=== PATIENT | female | born 1950 | race Caucasian/White ===

== ENCOUNTER 2016-07-15 15:02 | Day surgery (SDC) | payer OTHER ==
[2016-07-14 11:01] VITALS: Ht 157.5 cm; Wt 86.0 kg
[2016-07-15] VITALS (18 sets, daily range): BP systolic 133–158; BP diastolic 83–92; PULSE 64–72; RESP 12–22
[~2016-07-15] VITALS: Ht 157.5 cm; Wt 86.0 kg
[~2016-07-15 15:02] MED LIST: ETOMIDATE 20 MG INJ ONE; LACTATED RINGER'S 1,000 ML IV* SCH; METO25TA7 PO; OMEP20CA16 PO; POTA-57 PO
--- NOTE | 2016-07-15 15:26 | HPN ---
Date/Time of Note Date/Time of Note DATE: 07/15/16 TIME: 15:26 Interval H&P Admission Note Pt. seen H&P reviewed: No system changes FATMATA RICH July 15, 2016 15:26
[2016-07-15] MEDS ORDERED: LIDOCAINE 1% (STERILE-PAK) 30 ML INJ ONE (15:55)
[2016-07-15] MEDS ORDERED: BUPIVACAINE 0.5% (SDV) 30 ML INJ ONE (15:56)
[2016-07-15] MEDS ORDERED: POLYMYXIN/BACITRACIN 1L IRRIG ONE (15:56)
[2016-07-15] MEDS ORDERED: LIDOCAINE 1% (MDV) 20 ML INJ ONE (17:03)
[2016-07-15] MEDS ORDERED: MIDAZOLAM 1 MG/ML 2 ML INJ ONE (17:03)
[2016-07-15] MEDS ORDERED: FENTAnyl 50 MCG/ML VIAL ONE (17:03)
[2016-07-15] MEDS ORDERED: PROPOFOL 20 ML ONE (17:03)
[2016-07-15] MEDS ORDERED: ONDANSETRON 4 MG INJ ONE (17:13)
[2016-07-15] MEDS ORDERED: DEXAMETHASONE 4 MG/ML 1 ML INJ ONE (17:14)
[2016-07-15] MEDS ORDERED: FAMOTIDINE 20 MG INJ ONE (17:14)
[2016-07-15] MEDS ORDERED: CEFAZOLIN 1 GM INJ ONE (17:15)
[2016-07-15] MEDS ORDERED: HYD25 PO (17:27)
[2016-07-15] MEDS ORDERED: ESCI20TA38 PO (17:27)
[2016-07-15] MEDS ORDERED: KETOROLAC 30 MG INJ ONE (17:53)
--- NOTE | 2016-07-15 18:30 | OPR ---
DATE OF OPERATION: 07/15/2016 PREOPERATIVE DIAGNOSES: 1. 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 2. Right thumb interphalangeal joint mucous cyst. POSTOPERATIVE DIAGNOSES: 1. 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 2. Right thumb interphalangeal joint mucous cyst. PROCEDURE: 1. Excision of right thumb interphalangeal joint mucous cyst. 2. Right thumb interphalangeal joint arthrotomy with excision of osteophytes. SURGEON: Sam Noyola MD ANESTHESIA: General plus local. OPERATIVE FINDINGS: Right thumb interphalangeal joint osteoarthritis with osteophyte formation and mucous cyst formation. INDICATION FOR PROCEDURE: A 66-year-old female with longstanding right thumb cyst and pain. She failed conservative management and elected to proceed with surgical intervention, understanding the risks and benefits. DESCRIPTION OF PROCEDURE: The patient was seen in the preoperative area and all further questions were answered. Again, she gave informed consent understanding the risks and benefits. She was taken to the operative suite and placed in supine position. She was placed under general anesthesia, and tourniquet placed on the right upper extremity. Ancef 2 grams was given and the right upper extremity was prepped with ChloraPrep stick and draped in the usual sterile fashion. Esmarch bandage was used to exsanguinate the extremity and tourniquet inflated to 250 mmHg. An H-type incision at the dorsal aspect of the thumb interphalangeal joint was utilized with sharp dissection carried down through skin and subcutaneous tissue. Full-thickness skin flaps were raised proximally and distally and the terminal extensor tendon was identified. A radial and ulnar joint arthrotomy was made and large osteophytes were identified at the dorsal IP joint on both the proximal and distal phalanx. The osteophytes were excised with a rongeur on both the radial and ulnar aspects of the joint. I palpated the dorsal joint after debridement and excision of osteophytes, and the joint was smooth. A mucous cyst had formed distally just proximal to the nail plate, and a small incision was made there and the cyst was excised using a knife, tenotomy dissecting scissors and Adson forceps. The wounds were copiously irrigated and skin was closed with 5-0 nylon. Xeroform was placed over the wound followed by sterile gauze, Webril, and a finger splint on the volar aspect of the thumb, with the thumb in hyperextension at the IP joint. Tourniquet deflated after 24 minutes and patient was awakened from anesthesia. She was taken to the postoperative suite in stable condition and tolerated the procedure well without complication. SPECIMENS: None. ESTIMATED BLOOD LOSS: 5 mL. COUNTS: Sponge, instrument, needle counts correct. TOURNIQUET TIME: 24 minutes. CONDITION ON DISCHARGE: Stable. Dictated By: SAM HOGUE/JEFF Conf#: [id number] DID#: [id number] MTDD
[2016-07-15] MEDS ORDERED: HYDROCODONE/APAP (5/325) TAB PO ONE (19:30)
== END 2016-07-15 19:50 | disposition home or self-care (01) ==
LOC: SDS 15:02
PROVIDERS: ATTEND Orthopaedic Surgery Hand Surgery
DX: M19.041 Primary osteoarthritis, right hand (principal); I10 Essential (primary) hypertension
CPT/HCPCS: 26080; J0690; J1100; J2405; Z7512; Z7610; J1885; J2250; J3010

== ENCOUNTER → 2016-09-06 | Outpatient (CLI) | payer OTHER ==
[~2016-09-06] MED LIST changes: +ESCI20TA38 PO; -ETOMIDATE 20 MG INJ ONE; +HYD25 PO; -LACTATED RINGER'S 1,000 ML IV* SCH; +OPHTHALMIC IRRIG SOLUTION 120 ML ONE; +PHENYLephrine 10% 5 ML OPH ONE; -POTA-57 PO; +PROPARACAINE 0.5% 15 ML OPH ONE; +TROPICAMIDE 1% 3 ML OPH ONE
== END | disposition home or self-care (01) ==
LOC: RAD 12:43
PROVIDERS: ATTEND Ophthalmology
DX: H26.491 Other secondary cataract, right eye (principal)
CPT/HCPCS: 66821; Z7610

== ENCOUNTER 2016-12-06 05:19 | Day surgery (SDC) | payer OTHER ==
[2016-12-03 11:11] VITALS: BMI 37.9
[2016-12-06] VITALS (13 sets, daily range): BP systolic 93–145; BP diastolic 61–82; PULSE 32–68; RESP 18–21; Ht 154.9 cm; Wt 92.6 kg
[~2016-12-06] VITALS: Ht 154.9 cm; Wt 92.6 kg
[~2016-12-06 05:19] MED LIST changes: -HYD25 PO; +HYDR25TA6 PO; +METO-335 PO; -METO25TA7 PO; -OPHTHALMIC IRRIG SOLUTION 120 ML ONE; -PHENYLephrine 10% 5 ML OPH ONE; -PROPARACAINE 0.5% 15 ML OPH ONE; -TROPICAMIDE 1% 3 ML OPH ONE
[2016-12-06] MEDS ORDERED: HYDROmorphONE (0.2 MG/ML) 10ML SYG IV PRN ×3 (06:30)
[2016-12-06] MEDS ORDERED: MEPERIDINE 25 MG INJ IV PRN (06:30)
[2016-12-06] MEDS ORDERED: EPHEDrine SULFATE 50 MG/5 ML SYG IV PRN (06:30)
[2016-12-06] MEDS ORDERED: LABETALOL HCL 20MG INJ IV PRN (06:30)
[2016-12-06] MEDS ORDERED: ONDANSETRON 4 MG INJ IV PRN (06:30)
[2016-12-06] MEDS ORDERED: CYCLOPENTOLATE 2% 2 ML OPH OPER SCH (06:30)
[2016-12-06] MEDS ORDERED: ATROPINE 1 MG/10 ML SYRINGE IV PRN (06:30)
[2016-12-06] MEDS ORDERED: MOXIFLOXACIN 0.5% 3 ML OPH OPER SCH (06:30)
[2016-12-06] MEDS ORDERED: DIPHENHYDRAMINE 50 MG INJ IV PRN (06:30)
[2016-12-06] MEDS ORDERED: hydrALAzine 20 MG INJ IV PRN (06:30)
[2016-12-06] MEDS ORDERED: OXYCODONE/ACETAMINOPHEN (5/325) TAB PO PRN ×2 (06:30)
[2016-12-06] MEDS ORDERED: morphine (1 MG/ML) 10ML SYRINGE IV PRN ×3 (06:30)
[2016-12-06] MEDS ORDERED: MIDAZOLAM 1 MG/ML 2 ML INJ IV PRN (06:30)
[2016-12-06] MEDS ORDERED: FENTAnyl 50 MCG/ML VIAL IV PRN ×2 (06:30)
[2016-12-06] MEDS ORDERED: NEPAFENAC 0.1% 3 ML OPH OPER SCH (06:30)
[2016-12-06] MEDS ORDERED: PHENYLephrine 10% 5 ML OPH OPER SCH (06:30)
[2016-12-06] MEDS ORDERED: LIDOCAINE 1% (MPF) 10 ML INJ ONE (06:43)
[2016-12-06] MEDS ORDERED: TETRACAINE 0.5% 4 ML OPH ONE (06:43)
[2016-12-06] MEDS ORDERED: EPINEPHrine 1 MG INJ ONE (06:43)
[2016-12-06] MEDS ORDERED: BUPIVACAINE 0.75% (MPF) 10 ML INJ ONE (06:43)
[2016-12-06] MEDS ORDERED: TIMOLOL 0.5% 5 ML OPH ONE (06:43)
[2016-12-06] MEDS ORDERED: SODIUM BICARBONATE (IV ADD) 50 ML ONE (06:44)
[2016-12-06] MEDS ORDERED: LIDOCAINE 100 MG SYRINGE ONE (06:45)
[2016-12-06] MEDS ORDERED: LIDOCAINE 2% (SDV) 5 ML INJ ONE (06:45)
[2016-12-06] MEDS ORDERED: PROPOFOL 20 ML ONE (06:45)
[2016-12-06] MEDS ORDERED: TETRACAINE 0.5% 4 ML OPH OPER ONE (07:11)
[2016-12-06] MEDS ORDERED: PHENYLephrine 10% 5 ML OPH OPER ONE (07:11)
[2016-12-06] MEDS ORDERED: LIDOCAINE 1% (MPF) 5 ML VIAL INJ ONE (07:11)
[2016-12-06] MEDS ORDERED: CARBACHOL 0.01% 1.5 ML OPH INJ IO ONE (08:12)
[2016-12-06] MEDS ORDERED: TIMOLOL 0.5% 5 ML OPH LEFT EYE ONE (08:13)
--- NOTE | 2016-12-06 08:27 | HPN ---
Date/Time of Note Date/Time of Note DATE: 12/06/16 TIME: 08:26 Interval H&P Admission Note Pt. seen H&P reviewed: No system changes EMILY WHITE MD Dec 06, 2016 08:27
--- NOTE | 2016-12-06 08:34 | SIPON ---
Date/Time of Note Date/Time of Note DATE: 12/06/16 TIME: 08:32 Operative Report Preoperative Diagnosis cataract left eye Postoperative Diagnosis same Operation/Procedure Performed cataract extraction left eye with implant Surgeon see signature line paralegal assistant none Anesthesia: MAC Estimated blood loss: none Transfusion Required none Specimen none Grafts/Implants lens implant Complications none EMILY WHITE MD Dec 06, 2016 08:34
[2016-12-06] MEDS ORDERED: CARBACHOL 0.01% 1.5 ML OPH INJ ONE (08:43)
--- NOTE | 2016-12-14 15:19 | OPR ---
DATE OF OPERATION: 12/06/2016 SURGEON: Emily Nelson MD MSWS: None. PREOPERATIVE DIAGNOSIS: Senile nuclear sclerotic cataract, left eye. POSTOPERATIVE DIAGNOSIS: Senile nuclear sclerotic cataract, left eye. OPERATION: Kelman phacoemulsification with implantation of intraocular lens left eye. DESCRIPTION OF PROCEDURE: Following standard preparation and draping of the patient, a lid speculum was placed for immobilization of the lids. A SuperBlade incision was made at the corneal limbal ju nction for access into the anterior chamber. Approximately 0.03 mL of nonpreserved 1% Xylocaine was instilled into the anterior chamber, and after approximately 5 to 10 seconds, this was replaced wit h Viscoat. A clear corneal incision was then made using the 3.2 mm keratome, following which an ant erior circular capsulorrhexis was made. The major portion of the lens cortex and nucleus were then dislocated from the capsular bag using hydrodissection. The KPE tip was introduced into the eye and controlling tumbling of the lens with a 2-handed technique, the major portion of the lens cortex an d nucleus was removed, maintaining the lens in the plane of the iris. The remaining cortical materi al was removed via the irrigating aspirating instrument. The capsular bag and the anterior chamber were now reformed using Viscoat. The proper power lens was then placed in the capsular bag. The vi scoelastic was then removed from the eye and the eye reformed with balanced salt solution. One 10-0 Vicryl suture was then used to ensure closure of the corneal incision. The eye was reformed to nor mal pressure using balanced salt solution. The eye and cul-de-sacs were now simply flooded with 5% Betadine solution. One drop of Vigamox and 1 drop of Betagan solution were instilled into the eye. A light pressure dressing was applied, and the patient was returned to the recovery room in satisfa ctory condition. Dictated By: EMILY GRAY/JEFF Conf#: [id number] DID#: [id number]
== END 2016-12-06 10:10 | disposition home or self-care (01) ==
LOC: SDS 05:19
PROVIDERS: ATTEND Ophthalmology
DX: H25.12 Age-related nuclear cataract, left eye (principal); I10 Essential (primary) hypertension; E03.9 Hypothyroidism, unspecified; F31.9 Bipolar disorder, unspecified
CPT/HCPCS: 66984; J0171; J1170; J2001; J2175; J2405; V2632; Z7512; Z7610